=== PATIENT | male | born 1955 | race Caucasian/White ===

== ENCOUNTER 2017-05-25 08:36 | Inpatient (IN) | payer BC ==
[~2017-05-25] VITALS: Ht 185.4 cm; Wt 102.0 kg
[2017-05-25] MEDS ORDERED: LIDOCAINE-MPF 1%, 2ML INFIL ONE (09:00)
[2017-05-25] MEDS ORDERED: LACTATED RINGERS 1,000 ML IV SCH (09:00)
[2017-05-25 09:28] VITALS: BP 157/105
[2017-05-25] MEDS ORDERED: PLEASE ENTER ALLERGIES MC SCH (09:30)
[2017-05-25] MEDS ORDERED: ACET325T14 PO (09:44)
[2017-05-25] MEDS ORDERED: MIDAZOLAM 1 MG/ML, 2ML ONE (11:54)
[2017-05-25] MEDS ORDERED: THROMBIN 5,000 UNIT VIAL TP ONE (11:59)
[2017-05-25] MEDS ORDERED: EPINEPHRINE 1 MG/ML, 1ML ONE (11:59)
[2017-05-25] MEDS ORDERED: VANCOMYCIN 1,000 MG ONE (11:59)
[2017-05-25] MEDS ORDERED: LIDOCAINE/PF 0.5% ,50ML ONE (11:59)
[2017-05-25] MEDS ORDERED: REMIFENTANIL 2 MG ONE (12:04)
[2017-05-25] MEDS ORDERED: PROPOFOL 10 MG/ML, 20ML ONE (12:06)
[2017-05-25] MEDS ORDERED: LIDOCAINE-MPF 2% ,5ML ONE (12:07)
[2017-05-25] MEDS ORDERED: PROPOFOL 50 ML ONE ×3 (12:07→14:02)
[2017-05-25] MEDS ORDERED: ROCURONIUM 10MG/ML,5ML ONE (12:07)
[2017-05-25] MEDS ORDERED: WATER-INJECTION,STERILE 10 ML IV ONE ×4 (12:08)
[2017-05-25] MEDS ORDERED: PHENYLEPHRINE 10 MG/ML ONE (12:13)
[2017-05-25] MEDS ORDERED: CEFAZOLIN 1,000 MG ONE ×2 (13:00)
[2017-05-25] MEDS ORDERED: DEXAMETHASONE 4 MG/ML, 1ML ONE ×3 (13:10)
[2017-05-25] MEDS ORDERED: ONDANSETRON 2MG/ML, 2ML ONE (14:46)
[2017-05-25] MEDS ORDERED: ACETAMINOPHEN 650 MG/20.3 ML UDC ONE (15:45)
[2017-05-25] MEDS ORDERED: KETOROLAC 30 MG/1 ML ONE (15:45)
[2017-05-25] MEDS ORDERED: OXYcodone 5 MG/5 ML ORAL.SOL UDC ONE (15:46)
[2017-05-25] MEDS ORDERED: MIDAZOLAM 1 MG/ML, 2ML IV PRN (16:00)
[2017-05-25] MEDS ORDERED: OXYcodone 5 MG/5 ML ORAL.SOL UDC PO PRN (16:00)
[2017-05-25] MEDS ORDERED: KETOROLAC 30 MG/1 ML IV PRN ×2 (16:00)
[2017-05-25] MEDS ORDERED: LORazepam 2 MG/ML, 1ML IVPush PRN (16:00)
[2017-05-25] MEDS ORDERED: morphine SULFATE 10 MG/ML, 1ML IV PRN (16:00)
[2017-05-25] MEDS ORDERED: MEPERIDINE/PF 25MG/0.5ML IVPush PRN (16:00)
[2017-05-25] MEDS ORDERED: DIAZEPAM 5 MG/ML, 2ML IVPush PRN (16:00)
[2017-05-25] MEDS ORDERED: FENTANYL PF 100 MCG/2ML IV PRN (16:00)
[2017-05-25] MEDS ORDERED: ONDANSETRON 2MG/ML, 2ML IVPush PRN ×2 (16:00→17:30)
[2017-05-25] MEDS ORDERED: ACETAMINOPHEN 325 MG TABLET PO PRN (16:00)
[2017-05-25] MEDS ORDERED: HYDROmorphone 1 MG/ML, 1ML IV PRN (16:00)
[2017-05-25] MEDS ORDERED: HYDROcodone/APAP 7.5-325MG/15ML UDC PO PRN (16:00)
[2017-05-25] MEDS ORDERED: FENTANYL PF 100 MCG/2ML ONE (16:03)
[2017-05-25 16:45] VITALS: BP 137/93
[2017-05-25] MEDS ORDERED: MAGNESIUM HYDROXIDE 8%, 30ML UDC PO PRN ×2 (17:00→17:30)
[2017-05-25] MEDS ORDERED: BISACODYL 10 MG SUPP PR PRN ×2 (17:00→17:30)
[2017-05-25] MEDS ORDERED: PROMETHAZINE 25 MG/ML, 1ML IM PRN ×2 (17:00→17:30)
[2017-05-25] MEDS ORDERED: HYDROcodone/APAP 5/325 TABLET PO PRN ×2 (17:00→17:30)
[2017-05-25] MEDS ORDERED: ONDANSETRON 2MG/ML, 2ML IV PRN (17:00)
[2017-05-25] MEDS ORDERED: LABETALOL 5MG/ML, 20ML IV PRN (17:00)
[2017-05-25] MEDS ORDERED: HYDROcodone/APAP 10/325 MG TABLET PO PRN (17:30)
[2017-05-25] MEDS ORDERED: morphine SULFATE 10 MG/ML, 1ML IVPush PRN (17:30)
[2017-05-25] MEDS ORDERED: SENNA/DOCUSATE TABLET PO PRN (17:30)
[2017-05-25] MEDS ORDERED: LABETALOL 5MG/ML, 20ML IVPush PRN (17:30)
[2017-05-25] MEDS ORDERED: PHARMACY MAY ADJ FOR RENAL FX MC PRN (17:30)
[2017-05-25] MEDS: DEXAMETHASONE 4 MG/ML, 1ML IV SCH ×2 (18:05→23:41)
[2017-05-25] MEDS: HYDROcodone/APAP 10/325 MG TABLET PO PRN ×2 (19:45→23:41)
[2017-05-25] MEDS: METHOCARBAMOL 750 MG TABLET PO PRN (19:45)
[2017-05-25] MEDS: D5%-0.9% NACL+KCL 20MEQ 1,000 ML IV SCH (19:45)
[2017-05-25] MEDS ORDERED: CEFAZOLIN PMX 1GM/50ML 50 ML IVPB SCH (20:00)
[2017-05-25] MEDS: CEFAZOLIN PMX 1GM/50ML 50 ML IVPB SCH (20:47)
[2017-05-25 23:28] VITALS: BP 141/92
[2017-05-26] MEDS: D5%-0.9% NACL+KCL 20MEQ 1,000 ML IV SCH (03:00)
[2017-05-26 03:30] VITALS: BP 135/87
[2017-05-26] MEDS: HYDROcodone/APAP 10/325 MG TABLET PO PRN (04:04)
[2017-05-26] MEDS: METHOCARBAMOL 750 MG TABLET PO PRN (04:04)
[2017-05-26] MEDS: CEFAZOLIN PMX 1GM/50ML 50 ML IVPB SCH (04:06)
[2017-05-26] MEDS: DEXAMETHASONE 4 MG/ML, 1ML IV SCH (05:32)
[2017-05-26 07:50] VITALS: BP 131/89
[2017-05-26] MEDS ORDERED: SENNA/DOCUSATE TABLET PO SCH (09:00)
[2017-05-26] MEDS ORDERED: MAGNESIUM HYDROXIDE 8%, 30ML UDC PO ONE (09:00)
[2017-05-26 10:44] VITALS: BP 142/93
[2017-05-26] MEDS ORDERED: HYDR-3240 PO (13:14)
[2017-05-26] MEDS ORDERED: CEPH-368 PO (13:14)
[2017-05-26 13:15] VITALS: BP 143/94
[2017-05-28] MEDS ORDERED: METHOCARBAMOL 750 MG TABLET PO SCH (01:30)
== END 2017-05-26 13:34 | disposition home or self-care (01) | DRG 473 ==
LOC: ORIP 08:36 → 4NOR 16:41 → DCLOUNGE 05-26 13:18
PROVIDERS: ADMIT Orthopaedic Surgery Orthopaedic Surgery of the Spine; ATTEND Orthopaedic Surgery Orthopaedic Surgery of the Spine
PROC: 0RB30ZZ Excision of Cervical Vertebral Disc, Open Approach (ICD-10-PCS; 2017-05-25)
PROC: 01N10ZZ Release Cervical Nerve, Open Approach (ICD-10-PCS; 2017-05-25)
PROC: 4A11X4G Monitoring of Peripheral Nervous Electrical Activity, Intraoperative, External Approach (ICD-10-PCS; 2017-05-25)
PROC: 0RG10K0 Fusion of Cervical Vertebral Joint with Nonautologous Tissue Substitute, Anterior Approach, Anterior Column, Open Approach (ICD-10-PCS; principal; 2017-05-25 11:00)
DX: M50.01 Cervical disc disorder with myelopathy, high cervical region (principal); M48.02 Spinal stenosis, cervical region
CPT/HCPCS: 72040; 95938; 95941; C1713; J0171; J0690; J1100; J2001; J2250; J2405; J2704; J3010; J3370; J3490; C1762; J2270; J2370; J3480; J7120